=== PATIENT | male | born 1950 | race Caucasian/White ===

== ENCOUNTER 2019-08-31 07:45 | Inpatient (IN) | payer MEDICARE ==
[2019-08-30 13:08] VITALS: BMI 32.1
[2019-08-31 09:21] LABS: #Basophils 0.1 thou/uL (0.0-0.2); #Eosinphils 0.7 thou/uL (0.0-0.7); #Lymphocytes 3.8 thou/uL (1.20-3.40); #Monocytes 0.6 thou/uL (0.11-0.59); #Neutrophils 4.5 thou/uL (1.40-6.50); %Basophils 0.8 % (0.0-1.0); %Monocytes 6.6 % (0.0-10.0); %Neutrophils 46.6 % (42.0-75.0); Hemoglobin 15.3 g/dL (14.0-18.0); Mean Corpuscular HGB CONC 32.6 g/dL (32.0-36.0); Mean Corpuscular Hemoglobin 28.7 pg (27.0-31.0); Mean Corpuscular Volume 88.1 fL (78.0-98.0); Mean Platelet Volume 7.8 fL (7.4-10.4); Platelet Count 210 thou/uL (130-400); RBC Distribution Width 12.4 % (11.5-14.5); Red Blood Cell (RBC) Count 5.32 mill/uL (4.70-6.10); White Blood Cell (WBC) Count 9.6 thou/uL (4.8-10.8)
[2019-08-31 09:39] LABS: Anion Gap 14 mmol/L (10-20); BUN (Urea Nitrogen) 14 mg/dL (8.4-25.7); Calc. Creatinine Clearance 102 mL/min (70-130); Carbon Dioxide 26 mmol/L (23-31); Chloride 101 mmol/L (98-107); Estimated GFR-MDRD 66; Glucose 269 mg/dL (80-115); Potassium 4.1 mmol/L (3.5-5.1); Sodium 137 mmol/L (136-145)
[2019-08-31] MEDS ORDERED: PHENYLEPHRINE-NS 100 MCG/ML 10 ML SYRINGE ONE (09:56)
[2019-08-31] MEDS ORDERED: PROPOFOL 200 MG/20 ML VIAL ONE (09:56)
[2019-08-31] MEDS ORDERED: Lidocaine 1% PF 5 ML VIAL ONE (09:56)
[2019-08-31] MEDS ORDERED: Ketorolac Tromethamine 30 MG/ML VIAL ONE (09:56)
[2019-08-31] MEDS ORDERED: Rocuronium Bromide 10 MG/ML (10ML VIAL) ONE (09:56)
[2019-08-31] MEDS ORDERED: Glycopyrrolate 0.2 MG/ML 5 ML SYRINGE ONE (09:56)
[2019-08-31] MEDS ORDERED: Ondansetron PF 4 MG/2 ML Vial ONE (09:56)
[2019-08-31] MEDS ORDERED: Sodium Chloride 0.9% 10 ML ONE (09:59)
[2019-08-31] MEDS ORDERED: Fentanyl 100 MCG/2 ML VIAL ONE ×4 (10:24→13:16)
[2019-08-31] MEDS ORDERED: HYDROmorphone 2 MG/ML VIAL ONE ×2 (12:41→13:49)
[2019-08-31] MEDS ORDERED: Meperidine HCl/PF 25 MG/ML VIAL ONE (13:04)
[2019-08-31] MEDS ORDERED: Tamsulosin HCl 0.4 MG CAP ONE (13:09)
[2019-08-31] MEDS ORDERED: HYDROmorphone 0.5 MG/0.5 ML SYRINGE ONE (13:37)
[2019-08-31] MEDS ORDERED: tiZANidine HCl 4 MG TAB ONE (14:27)
--- NOTE | 2019-08-31 15:19 | OP ---
DATE OF PROCEDURE: 08/31/2019 TOWER OPERATOR: Clau Castillo PA-C. PROCEDURES PERFORMED: L2-3 laminectomy, posterolateral arthrodesis, demineralized bone matrix, local morselized autograft, pedicle screw instrumentation at L2-3. DESCRIPTION OF PROCEDURE: The patient was brought to the operating room and intubated. He was rolled in prone position on gel-filled chest rolls. An incision was made exposing L2 and L3 and our level was confirmed by x-ray. Some of his previous scar seemed to emanate all the way into the L2-L3 area with perhaps some scar tissue at left L2-L3. We performed complete L3 and inferior L2 laminectomy and we completely decompressed the L2-L3 interspace. There was significant retrolisthesis as anticipated. After complete decompression had been secured, we placed pedicle screws at right L2 and right L3. The bone was found to be marginally soft. A leandro was then secured between the screws and distraction was applied across the right L2 neural foramen. The leandro was secured with nuts, which were final tightened. The wound was then extensively irrigated. MAC hemostasis was secured. A combination of demineralized bone matrix and local morselized autograft was laid over the lamina and posterolateral surfaces for the purpose of arthrodesis. Vancomycin powder was applied and the wound was then closed in anatomic layers. Job ID: [id number]
[2019-08-31] MEDS ORDERED: HYDROcodone/Acetaminophen 5/325 mg Tablet ONE (16:43)
== END 2019-08-31 17:15 | disposition home or self-care (01) | DRG 460 ==
LOC: SURG A 07:45
PROVIDERS: ADMIT Neurological Surgery; ATTEND Neurological Surgery
PROC: 0SG0071 Fusion of Lumbar Vertebral Joint with Autologous Tissue Substitute, Posterior Approach, Posterior Column, Open Approach (ICD-10-PCS; principal; 2019-08-31)
DX: M47.26 Other spondylosis with radiculopathy, lumbar region (principal); I10 Essential (primary) hypertension; E78.5 Hyperlipidemia, unspecified; I48.91 Unspecified atrial fibrillation; G43.909 Migraine, unspecified, not intractable, without status migrainosus; E11.9 Type 2 diabetes mellitus without complications; Z79.84 Long term (current) use of oral hypoglycemic drugs; Z79.899 Other long term (current) drug therapy; Z88.8 Allergy status to other drugs, medicaments and biological substances
CPT/HCPCS: 36415; 76000; 80048; 85025; 93005; 93010; J0690; J1170; J1885; J2001; J2175; J2405; J2704; J3010; J3370; J3490

== ENCOUNTER 2019-09-20 14:56 | Outpatient (CLI) | payer MEDICARE ==
--- NOTE | 2019-09-20 15:09 | RAD ---
EXAM: XR Lumbar Spine 2 Or 3 View PROVIDED CLINICAL HISTORY: Postop COMPARISON: None FINDINGS: 5 nonrib-bearing lumbar-type vertebral bodies are demonstrated. Unilateral right-sided pedicle screws and vertical interconnecting rods span L2-3. There is retrolisthesis of L2 on L3. Slight anterolisthesis of L4 on L5. Vertebral body heights are preserved. Pedicles appear grossly intact. Ch olecystectomy clips are seen in the right upper quadrant. Lower lumbar spine facet degenerative changes are seen. Disc degenerative changes are seen at L1-2. Vascular calcifications are noted. IMPRESSION: Degenerative and postoperative change as above.
== END 2019-09-20 14:57 | disposition home or self-care (01) ==
LOC: TBSIIMAG 14:56
PROVIDERS: ATTEND Neurological Surgery
DX: M47.26 Other spondylosis with radiculopathy, lumbar region (principal); Z98.890 Other specified postprocedural states
CPT/HCPCS: 72100